=== PATIENT | female | born 1970 | race Caucasian/White ===

== ENCOUNTER 2017-05-01 04:56 | Emergency (ER) | payer SELFPAY ==
[~2017-05-01] VITALS: Ht 167.6 cm; Wt 63.0 kg
[2017-05-01] MEDS ORDERED: ALBUTEROL SULFATE 5 MG/ML 20 ML NEB SOLN [BULK] NEB ONE (05:15)
[2017-05-01] MEDS ORDERED: IPRATROPIUM BROMIDE 0.5 MG/2.5 ML NEB SOLUTION NEB ONE (05:15)
[2017-05-01] MEDS ORDERED: PredniSONE 20 MG TABLET PO ONE (06:15)
[2017-05-01] MEDS ORDERED: ALBUTEROL SULFATE HFA 90 MCG/PUFF 8 GM INHALER IH ONE (07:45)
[2017-05-01 07:57] VITALS: BP 151/86
== END 2017-05-01 08:09 | disposition home or self-care (01) ==
LOC: EDBD → EMS 04:57
DX: J45.901 Unspecified asthma with (acute) exacerbation (principal); F17.210 Nicotine dependence, cigarettes, uncomplicated
CPT/HCPCS: 94060; 94640; 99284; 99406; J7512; J7611; 94644; J3535

== ENCOUNTER 2017-05-01 18:39 | Inpatient (IN) | payer MEDICAID ==
[~2017-05-01] VITALS: Ht 167.6 cm; Wt 58.1 kg
[2017-05-01 19:57] LABS: BASOPHILS % (AUTO) 0.7 % (0.0-2.0); EOSINOPHILS % (AUTO) 0.1 % (1.0-6.0); HEMATOCRIT 41.2 % (36-46); HEMOGLOBIN 13.7 g/dL (12.0-16.0); LYMPHOCYTES # (AUTO) 1.3 K/uL (1.0-4.8); LYMPHOCYTES % (AUTO) 15.7 % (22.0-44.0); MEAN CORPUSCULAR HEMOGLOBIN 29.1 pg (26.0-34.0); MEAN CORPUSCULAR HGB CONC 33.2 G/dL (31.0-37.0); MEAN CORPUSCULAR VOLUME 88 fL (80-100); MONOCYTES # (AUTO) 0.5 K/uL (0.1-1.0); MONOCYTES % (AUTO) 5.7 % (2.0-9.0); NEUTROPHILS # (AUTO) 6.5 K/uL (1.8-7.7); NEUTROPHILS % (AUTO) 77.8 % (40.0-70.0); PLATELET COUNT (AUTO) 372 K/uL (150-450); RED BLOOD CELL COUNT(AUTO) 4.69 MIL/uL (4.00-5.20); RED CELL DISTRIBUTION WIDTH 12.6 % (11.5-14.5); WHITE BLOOD COUNT (AUTO) 8.3 K/uL (4.5-11.0)
[2017-05-01 20:06] LABS: ANION GAP 8 mmol/L (8-16); CALCIUM, TOTAL 9.4 mg/dL (8.8-10.5); CARBON DIOXIDE 29 mmol/L (22-29); CHLORIDE 102 mmol/L (98-107); CREATININE 0.79 mg/dL (0.60-1.30); GLOMERULAR FILTR. RATE CALC > 60 mL/min (>60); POTASSIUM 3.1 mmol/L (3.5-5.1); SODIUM SERUM 139 mmol/L (136-145); UREA NITROGEN, BLOOD 10 mg/dL (7-18)
[2017-05-01 20:12] LABS: ALANINE AMINOTRANSFERASE 33 U/L (12-78); ALBUMIN 4.1 g/dL (3.4-5.0); ASPARTATE AMINOTRANSFERASE 26 U/L (15-37); BILIRUBIN,TOTAL 0.9 mg/dL (0.1-1.0); TOTAL PROTEIN, SERUM 7.6 g/dL (6.4-8.2)
[2017-05-01] MEDS ORDERED: HALOPERIDOL 5 MG TABLET PO PRN (23:15)
[2017-05-01 23:19] VITALS: BP 128/66
[2017-05-02 00:06] VITALS: BP 138/8
[2017-05-02] MEDS: ZOLPIDEM TARTRATE 10 MG TABLET PO PRN (00:11)
[2017-05-02] MEDS ORDERED: POTASSIUM CHLORIDE 20 MEQ ER TABLET PO ONE (08:00)
[2017-05-02 08:28] VITALS: BP 101/54
[2017-05-02 09:27] LABS: CHOL/HDL RATIO 2.1 (3.9-5.7); THYROID STIMULATING HORMONE 0.24 uIU/mL (0.36-3.74)
[2017-05-02] MEDS: ALBUTEROL SULFATE HFA 90 MCG/PUFF 8 GM INHALER IH PRN (14:36)
[2017-05-02 16:09] VITALS: BP 110/65
[2017-05-02] MEDS: LORazepam 2 MG TABLET PO PRN (17:14)
[2017-05-02] MEDS: MIRTAZAPINE 15 MG TABLET PO SCH (20:18)
[2017-05-03 06:20] VITALS: BP 122/64
[2017-05-03 08:26] VITALS: BP 108/66
[2017-05-03] MEDS: ARIPiprazole 5 MG TABLET PO SCH (08:37)
[2017-05-03] MEDS: NICOTINE 21 MG/24 HOUR PATCH TD SCH (14:23)
[2017-05-03 16:22] VITALS: BP 121/82
[2017-05-03] MEDS ORDERED: MENTHOL/CAMPHOR/DIMETH/PHENOL 10 GM OINTMENT TP PRN (18:15)
[2017-05-03] MEDS: LORazepam 2 MG TABLET PO PRN (18:39)
[2017-05-03] MEDS: MIRTAZAPINE 15 MG TABLET PO SCH (20:32)
[2017-05-04 06:40] VITALS: BP 121/76
[2017-05-04 07:32] LABS: POTASSIUM 4.7 mmol/L (3.5-5.1); THYROID STIMULATING HORMONE 1.06 uIU/mL (0.36-3.74)
[2017-05-04] MEDS: ARIPiprazole 5 MG TABLET PO SCH (08:27)
[2017-05-04] MEDS: NICOTINE 21 MG/24 HOUR PATCH TD SCH (08:27)
[2017-05-04 08:40] VITALS: BP 138/88
[2017-05-04 16:05] VITALS: BP 114/71
[2017-05-04] MEDS: ZOLPIDEM TARTRATE 10 MG TABLET PO PRN (20:37)
[2017-05-04] MEDS: MIRTAZAPINE 15 MG TABLET PO SCH (20:37)
[2017-05-05 06:15] VITALS: BP 113/79
[2017-05-05 08:47] VITALS: BP 139/76
[2017-05-05] MEDS: ARIPiprazole 5 MG TABLET PO SCH (09:00)
[2017-05-05] MEDS: NICOTINE 21 MG/24 HOUR PATCH TD SCH (09:03)
[2017-05-05] MEDS: ALBUTEROL SULFATE HFA 90 MCG/PUFF 8 GM INHALER IH PRN (12:05)
[2017-05-05] MEDS: LORazepam 2 MG TABLET PO PRN ×2 (12:52→18:07)
[2017-05-05 16:00] VITALS: BP 112/64
[2017-05-05] MEDS: MIRTAZAPINE 30 MG TABLET PO SCH (20:43)
[2017-05-06 06:29] VITALS: BP 103/61
[2017-05-06] MEDS: ARIPiprazole 10 MG TABLET PO SCH (08:49)
[2017-05-06] MEDS: NICOTINE 21 MG/24 HOUR PATCH TD SCH (08:49)
[2017-05-06 08:50] VITALS: BP 114/76
[2017-05-06] MEDS: LORazepam 2 MG TABLET PO PRN ×2 (12:05→19:00)
[2017-05-06] MEDS ORDERED: NICOTINE 21 MG/24 HOUR PATCH TD ONE (14:45)
[2017-05-06 16:36] VITALS: BP 119/61
[2017-05-06] MEDS: MIRTAZAPINE 30 MG TABLET PO SCH (20:17)
[2017-05-07 05:42] VITALS: BP 106/75
[2017-05-07 08:34] VITALS: BP 142/80
[2017-05-07] MEDS: ARIPiprazole 10 MG TABLET PO SCH (08:58)
[2017-05-07] MEDS: NICOTINE 21 MG/24 HOUR PATCH TD SCH (08:58)
[2017-05-07] MEDS ORDERED: MIRT30 PO (13:33)
[2017-05-07] MEDS ORDERED: ALBU8HFA4 IH (13:33)
[2017-05-07] MEDS ORDERED: ARIP10TA14 PO (13:33)
== END 2017-05-07 14:50 | disposition home or self-care (01) | DRG 751 ==
LOC: EMS 18:41 → B2S 22:15
PROVIDERS: ADMIT Psychiatry & Neurology Psychiatry; ATTEND Psychiatry & Neurology Psychiatry
DX: F33.3 Major depressive disorder, recurrent, severe with psychotic symptoms (principal); R45.851 Suicidal ideations; E87.6 Hypokalemia; F17.210 Nicotine dependence, cigarettes, uncomplicated; F31.9 Bipolar disorder, unspecified; F41.9 Anxiety disorder, unspecified; F60.3 Borderline personality disorder; J45.909 Unspecified asthma, uncomplicated; S61.519A Laceration without foreign body of unspecified wrist, initial encounter; X58.XXXA Exposure to other specified factors, initial encounter; Y93.89 Activity, other specified; Y92.89 Other specified places as the place of occurrence of the external cause; Y99.8 Other external cause status; Z59.0 Homelessness
CPT/HCPCS: 83036; 84132; 84436; 84439; 84443; 84481; 99285; G0480; J3535